=== PATIENT | male | born 1980 ===

== ENCOUNTER 2024-10-08 13:38 | Emergency (ER) | payer OTHER, BC, SELFPAY ==
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
[2024-10-08 13:44] VITALS: BP 133/70; PULSE 94; RESP 16; TEMP 36.4; O2SAT 100
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
--- OUTSIDE RECORDS SUMMARY | 2024-10-08 18:09 | XMS_ITS | Referral Summary ---
Author Organization [facility] Address [address] [place] [address] Care Team Providers Care Project Program Manager Name Role Phone Dinorah Cai GARRICK Primary Care Provider + Encounters Date Type Department Care Team Description 07/13/2024 Refill [facility] [address] [phone] Danuta Cruz MD Medication Refill from Last 3 Months Allergies No known active allergies Medications VITAMIN D PO Take by mouth. Active HYDROcodone-gaby taminophen (NORCO) 5-325 mg per tablet Take 1 tablet by mouth every 6 hours as needed for Pain. 10 tablet 07/14/2019 Active mesalamine (LIALDA) 1.2 g EC tablet Take 2 tablets by mouth Daily. 60 tablet 3 07/17/2024 Active Active Problems Problem Noted Date Diagnosed Date Non-recurrent bilateral ingu inal hernia without obstruction or gangrene 07/14/2019 Social History Tobacco Use Types Packs/Day Years Used Date Smoking Tobacco: Never Assessed Sex and Gender Information Value Date Recorded Sex Assigned at Not on file Legal Sex Male 12:22 AM PST Gender Identity Not on file Sexual Orientation Not on file Last Filed Vital Signs Vital Sign Reading Time Taken Comments Blood Pressure 120/76 07/14/2019 2:15 PM PST Pulse 72 07/14/2019 2:15 PM PST Temperature 36.8 C (98.2 F) 07/14/2019 2:15 PM PST Respiratory Rate 13 07/14/2019 2:15 PM PST Oxygen Saturation 96% 07/14/2019 2:15 PM PST Inhaled Oxygen Concentration - - Weight 87.1 kg (192 lb) 07/14/2019 11:06 AM PST Height 182.9 cm (6') 07/14/2019 11:06 AM PST Body Mass Index 26.04 07/14/2019 11:06 AM [facility] Plan of Treatment Not on file Medical Devices Implanted Type Area Superintendent Maintenance Airports Device Identifier Shelf Expiration Date Model / Serial / Lot Fhsc Mesh Lge/Lft 3d Max - [id number] Implanted:Qty: 1 on 07/14/2019 by CounterRashad MD at [facility] 08/25/2023 [id number] / / [id number] Fhsc Mesh, Lge/Right, 3d Max - [id number] Implanted:Qty: 1 on 07/14/2019 by CounterRashad MD at [facility] 07/25/2023 [id number] / / [id number] Procedures Procedure Name Priority Date/Time Associated Diagnosis Comments COMPREHENSIVE METABOLIC PANEL Routine 10/10/2023 8:47 AM PDT Ulcerative proctitis with rectal bleeding (HCC) from Last 3 Months or Most Recently Relevant to Health Maintenance Results * Comprehensive Metabolic Panel (10/10/2023 8:47 AM PDT) Na 141 135 - 145 mmol/L 10/10/2023 9:52 AM PDT [facility] K 4.3 3.5 - 5.3 mmol/L 10/10/2023 9:52 AM PDT [facility] Cl 105 99 - 109 mmol/L 10/10/2023 9:52 AM PDT [facility] CO2 30 20 - 36 mmol/L 10/10/2023 9:52 AM PDT [facility] Anion Gap 6 5 - 16 mmol/L 10/10/2023 9:52 AM PDT [facility] Glucose 87 65 - 99 mg/dL 10/10/2023 9:52 AM PDT [facility] BUN 16 8 - 25 mg/dL 10/10/2023 9:52 AM PDT [facility] Creatinine 1.06 0.70 - 1.30 mg/dL 10/10/2023 9:52 AM PDT [facility] Calcium 9.6 8.5 - 10.2 mg/dL 10/10/2023 9:52 AM PDT [facility] Albumin 4.3 3.5 - 5.0 g/dL 10/10/2023 9:52 AM PDT [facility] Bilirubin Total 0.6 0.0 - 1.5 mg/dL 10/10/2023 9:52 AM PDT [facility] Total Protein 6.4 6.2 - 8.2 g/dL 10/10/2023 9:52 AM PDT [facility] AST 19 10 - 45 U/L 10/10/2023 9:52 AM PDT [facility] ALT 25 10 - 65 U/L 10/10/2023 9:52 AM PDT [facility] Alkaline Phosphatase 64 35 - 115 U/L 10/10/2023 9:52 AM PDT [facility] Globulin 2.1 1.8 - 3.5 g/dL 10/10/2023 9:52 AM PDT [facility] Albumin/Globulin Ratio 2.0 1.2 - 2.8 10/10/2023 9:52 AM PDT [facility] BUN/Creatinine Ratio 15.1 12.0 - 20.0 10/10/2023 9:52 AM PDT [facility] eGFR >60 >=60 mL/min/1. 73m2 10/10/2023 9:52 AM PDT [facility] Comment: GFR value was calculated using a new GFR equation effective since 08/15/21. This is a recommendation of the [place] Society of Nephrology and National Kidney Foundation. Clinical practice guidelines suggest the use of serum cystatin C as a confirmatory test for eGFR 45-59 ml/min/1.73m2 in adults who do not have markers of kidney disease; eGFR may be less accurate in this range. Blood Venipuncture / Unknown 10/10/2023 8:47 AM PDT 10/10/2023 8:46 AM PDT Danuta Cruz MD LAB BLOOD ORDERABLES Final Res ult [facility] [address] [phone] from Last 3 Months or Most Recently Relevant to Health Maintenance Insurance [employer]MERA PREFERRED PREMERA PREFERRED Member Subscriber Plan / Payer (Ef fective 2018-Present) Name:Carlos Garcia Relation to Subscriber:Self Name:Carlos Garcia Payer ID:[id number] (NAIC) Type:PPO Address: [place] [id number] [employer]MERA PREFERRED Advance Directives * Full Code (Latest Code Status on File) Date Activated Date Inactivated Comments 07/14/2019 12:42 PM 07/15/2019 2:34 AM Care Teams Project Program Manager Relationship Specialty [place] [address] [place] [address] PCP - General 01/05/19
--- OUTSIDE RECORDS SUMMARY | 2024-10-08 18:09 | XMS_ITS | Clinical Summary ---
Author Organization [facility] Address [address] [place] [address] Phone Care Team Providers Care Grab Hooker Name Role Phone Dinorah Cai Primary Care Provider [phone] Allergies No known active allergies Medications cephALEXin 500 MG capsuleIndicati ons:Toe infection,Paron ychia, toe, left Take 2 capsules by mouth 2 times daily. Take until gone 28 Cap 9 Active Additional Information Patient not taking.Reason: Therapy Complete, Reported on 06/24/2019 VITAMIN D PO Take by mouth. Ac tive Active Problems No known active problems Immunizations Immunization Administration Dates Next Due COVID-19 Pfizer 30 mcg/0.3 m L Primary series: MONOVALENT VACCINE (Cook capped vial with cook-bordered label) 12+yrs 10/29/2020,10/10/2020 Social History Tobacco Use Types Packs/Day Years Used Date Smoking Tobacco: Never Smokeless Tobacco: Never Alcohol Use Standard Drinks/Week Comments Yes 0 (1 standard drink = 0.6 oz pur e alcohol) AUDIT-C Answer Date Recorded Q1: How often do you have a drink containing alc ohol? 2-4 times a month 09/18/2019 Average Number of Drinks Not on file 020 Frequency of Binge Drinking Not on file 08/30 Sex and Gender Information Value Date Recorded Sex Assigned at Not on file Legal Sex Male 10:13 AM PDT Gender Identity Not on file Sexual Orientation Not on file Last Filed Vital Signs Vital Sign Reading Time Taken Comments Blood Pressure 120/70 09/18/2019 2:56 PM PST Pulse 90 09/18/2019 2:42 PM PST Temperature 36.8 C (98.3 F) 09/18/2019 2:42 PM PST Respiratory Rate 18 09/18/2019 2:42 PM PST Oxygen Saturation 95% 02/04/2019 10:59 AM PDT Inhaled Oxygen Concentration - - Weight 92.3 kg (203 lb 8 oz) 09/18/2019 2:42 PM PST Height 182.9 cm (6') 09/18/2019 2:42 PM PST Body Mass Index 27.6 09/18/2019 2:42 PM PST Plan of Treatment Health Maintenance Due Date Last Done Comments Depression Screening 1994 HIV Screening 2000 Hepatitis C Screening 2000 DTaP/Td/Tdap Vaccines (1 - Tdap) 2001 Hepatitis B Vaccines (1 of 3 - 19+ 3-dose series) 2001 COVID-19 Vaccine ( season) 2024 08/08/2023, 07/11/2021, 10/29/2020, Additional history exists Influenza Vaccine (#1) 2024 4, 06/11/2022, 04/15/2021 Lipid Panel 09/30/2024 10/01/2019 HPV Vaccines Aged Out No longer eligi ble based on patient's age to complete this topic Pneumococcal Vaccine Aged Out No long er eligible based on patient's age to complete this topic Procedures Procedure Name Priority Date/Time Associated Diagnosis Comments [facility] LIPID PANEL Routine 10/01/2019 8:03 AM PST from Last 3 Months or Most Recently Relevant to Health Maintenance Results * LIPID PANEL (10/01/2019 8:03 AM PST) Triglycerides 66 30 - 200 mg/dL [facility] Comment: Adult: < 150 Desirable 150-199 Borderline High 200-499 High >= 500 Very High Pediatric 2-17 years < 90 Desirable 90-129 Borderline High >= 130 High Cholesterol 186 150 - 240 mg/dL [facility] Comment: < 200 Desirable 200-239 Borderline High >= 240 High Risk HDL Cholesterol 56 mg/dL [facility] Comment: Male: >=60 Less than Average Risk of Coronary Disease 40-59 Average Risk of Coronary Disease <40 Increased Risk of Coronary Disease Female: >=60 Less than Average Risk of Coronary Disease 50-59 Average Risk of Coronary Disease <50 Increased Risk of Coronary Disease LDL Cholesterol 117 3 - 130 mg/dL [facility] Comment: < 100 Optimal 100-129 Near Optimal, Above Optimal 130-159 Borderline High 160-189 High >= 190 Very High Chol/HDL 3.3 0.0 - 5.0 [facility] LDL/HDL 2.1 0.0 - 3.0 [facility] 10/01/2019 8:03 AM PST 10/01/2019 2:32 PM PST Narrative [facility] - 10/01/2019 3:30 PM PST Fasting Dinorah Cai CHEMISTRY ORDERABLES Final Resul t [facility] [address] [place] [address] from Last 3 Months or Most Recently Relevant to Health Maintenance Insurance [employer] Care Teams Grab Hooker Relationship Specialty Start Date End Date Dinorah Cai [address] [facility] [address] [place] [address] PCP - General MACHINE MAINTENANCE MECHANIC 03/23/24
--- OUTSIDE RECORDS SUMMARY | 2024-10-08 18:10 | XMS_ITS | Clinical Summary ---
Author Organization [facility] Address [address] [place] [address] Care Team Providers Care Prop Attendant Name Role Phone Ayala Dinorah Tameka GARRICK Primary Care Provider + Allergies No known active allergies Medications VITAMIN [...] inal hernia without obstruction or gangrene 07/14/2019 Encounters Date Type Department Care Team Description 07/13/2024 Refill [facility] [address] [phone] Danuta Cruz MD Medication Refill from Last 3 Months Social History Tobacco Use Types Packs/Day Years [...] Body Mass Index 26.04 07/14/2019 11:06 AM PST Plan of Treatment Health Maintenance Due Date Last Done Comments Hepatitis C Screening 1982 Human Immunodeficiency Virus (HIV) Screening 1997 Vaccine: Dtap/Tdap/Td (1 - Tdap) 2001 COVID-19 Vaccine (2023-2 5 season) 2024 08/08/2023, 07/11/2021, 10/29/2020, Additional history exists Vaccine: Influenza (#1) 2024 08/08/19 24, 06/11/2022, 04/15/2021 Med Mgmt: Cr 10/09/2024 10/10/2023 Medication Management 10/09/2024 10/10/2023 Vaccine: HPV Aged Out No longer eligi ble based on patient's age to complete this topic Vaccine: Hib Aged Out No longer eligi ble based on patient's age to complete this topic Medical Devices Implanted Type Area Life Science Taxonomist Device Identifier Shelf Expiration Date Model / Serial / Lot Fhsc Mesh Lge/Lft 3d Max - [id number] Implanted:Qty: 1 on 07/14/2019 by Rashad Myrick MD at [facility] 08/25/2023 [id number] / / [id number] Fhsc Mesh, Lge/Right, 3d Max - [id number] Implanted:Qty: 1 on 07/14/2019 by Rashad Myrick MD at [facility] 07/25/2023 [id number] / / [id number] Procedures Procedure Name Priority Date/Time Associated Diagnosis Comments COMPREHENSIVE METABOLIC PANEL Routine 10/10/2023 8:47 AM PDT Ulcerative proctitis with rectal bleeding (HCC) from Last 3 Months or Most Recently Relevant to Health Maintenance Results * Comprehensive Metabolic Panel (10/10/2023 8:47 AM PDT) Na 141 135 - 145 mmol/L 10/10/2023 9:52 AM PDT [facility] K 4.3 3.5 - 5.3 mmol/L 10/10/2023 9:52 AM PDT [facility] Cl 105 99 - 109 mmol/L 10/10/2023 9:52 AM PDT [facility] CO2 30 20 - 36 mmol/L 10/10/2023 9:52 AM PDT [facility] Anion Gap 6 5 - 16 mmol/L 10/10/2023 9:52 AM PDT [facility] Glucose 87 65 - 99 mg/dL 10/10/2023 9:52 AM PDT [facility] BUN 16 8 - 25 mg/dL 10/10/2023 9:52 AM PDT [facility] Creatinine 1.06 0.70 - 1.30 mg/dL 10/10/2023 9:52 AM PDT [facility] Calcium 9.6 8.5 - 10.2 mg/dL 10/10/2023 9:52 AM PDT [facility] Albumin 4.3 3.5 - 5.0 g/dL 10/10/2023 9:52 AM PDT [facility] Bilirubin Total 0.6 0.0 - 1.5 mg/dL 10/10/2023 9:52 AM PDT [facility] Total Protein 6.4 6.2 - 8.2 g/dL 10/10/2023 9:52 AM PDT [facility] AST 19 10 - 45 U/L 10/10/2023 9:52 AM PDT [facility] ALT 25 10 - 65 U/L 10/10/2023 9:52 AM PDT [facility] Alkaline Phosphatase 64 35 - 115 U/L 10/10/2023 9:52 AM PDT [facility] Globulin 2.1 1.8 - 3.5 g/dL 10/10/2023 9:52 AM PDT [facility] Albumin/Globulin Ratio 2.0 1.2 - 2.8 10/10/2023 9:52 AM PDT [facility] BUN/Creatinine Ratio 15.1 12.0 - 20.0 10/10/2023 9:52 AM PDT [facility] eGFR >60 >=60 mL/min/1. 73m2 10/10/2023 9:52 AM PDT [facility] Comment: GFR value was calculated using a new GFR equation effective since 08/15/21. This is a recommendation of the [place] [employer] of Nephrology and National Kidney Foundation. Clinical practice guidelines suggest the use of serum cystatin C as a confirmatory test for eGFR 45-59 ml/min/1.73m2 in adults who do not have markers of kidney disease; eGFR may be less accurate in this range. Blood Venipuncture / Unknown 10/10/2023 8:47 AM PDT 10/10/2023 8:46 AM PDT us Danuta Cruz MD LAB BLOOD ORDERABLES Final Res ult [facility] [address] [place] [address] [phone] from Last 3 Months or Most Recently Relevant to Health Maintenance Insurance [employer]A PREFERRED PREMERA PREFERRED [employer] PREFERRED Advance Directives * Full Code (Latest Code Status on File) Date Activated Date Inactivated Comments 07/14/2019 12:42 PM 07/15/2019 2:34 AM Care Teams Prop Attendant Relationship Specialty [place] [address] [place], [place] [id number] PCP - General 01/05/19
--- OUTSIDE RECORDS SUMMARY | 2024-10-08 18:10 | XMS_ITS ---
Author Organization [facility] Address [address] [place] [address] Care Team Providers Care Hr Associate Name Role Phone Dinorah Cai ND Primary Care Provider Manju King MD, [place] Unavailable [phone] REASON FOR VISIT Re:RE:New Refill Request Encounters Encounter Location Date Provider Diagnosis [place] [address] [place] [address] 05/02/2023 Avni King Plan Of Treatment No Information Progress Notes * Carlos PATEL WDOB:1980 (42 yo M)Acc No.[id number]:05/02/2023 Patient: Carlos Perry :1980 A ge:42 Y S ex:Male Address:[address] [place] [address] * true * Date: Generated for Xenai ng/Faconnerg/eTransmitting on: 0 10/08/2024 07:09 PM EDT
--- OUTSIDE RECORDS SUMMARY | 2024-10-08 18:10 | XMS_ITS | Patient Health Record ---
Author Organization [facility] Address [address] [address] Care Team Providers Care Public Health Aides Teacher Name Role Phone Dinorah Cai ND Primary Care Provider Manju King MD, [facility] Unavailable [phone] Allergies No Known Allergies Reason For Referral No Information Medications Medication SIG (Take, Route, Fr equency, Duration) Notes Start Date End Date Status Mesalamine 1000 MG 1 suppository at bed time Rectal Once a day for 30 days 04/13/2021 Active Social History Tobacco Use: Social History Observation Description Date Details (start date - stop date) Never Smoker NA - NA Tobacco Use/Smoking (Archived) Question Answer Notes Are you a? nonsmoker Alcohol Screen (Audit-C) Question Answer Notes Did you have a drink contain ing alcohol in the past year? Yes How many drinks did you have on a typical day when you were drinking in the past year? 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) Ulcerative proctitis without complication (K51.20) Active confirmed Plan Of Treatment Future Test Test Name Order Date Colonoscopy 04/10/2021 Insurance Providers Payer Name Payer Address Payer Phone Subscriber Number Group Number Insured Name Patient Relationship to Insured Coverage Start Date Coverage End Date [employer] [address] [address] [place] [address] [id number] Carlos Garcia Self - patient is the insured Medical (General) History Medical History History ICD Code Bilateral inguinal hernia Family history of colon cancer (maternal grandfather) Family history of colon polyps (mother) undergoing surveillance Family history of diverticul itis (paternal grandmother complicated requiring surgery) Family history of PUD (mother) Ulcerative proctitis Surgical History Surgery Date(Month/Year) Bilateral inguinal herniorrhaphy
--- OUTSIDE RECORDS SUMMARY | 2024-10-08 18:10 | XMS_ITS | Referral Summary ---
Author Organization [facility] Address [address] [place] [address] Phone Care Team Providers Care Health Commissioner Name Role Phone Dinorah Cai Primary Care Provider [phone] Allergies No known active allergies Medications cephALEXin [...] 09/18/2019 2:42 PM PST Plan of Treatment Not on file Procedures Procedure Name Priority Date/Time Associated Diagnosis Comments G LIPID PANEL Routine 10/01/2019 8:03 AM PST from Last 3 Months or Most Recently Relevant to Health Maintenance Results * LIPID PANEL (10/01/2019 8:03 AM PST) Triglycerides 66 30 - 200 mg/dL [facility] Comment: Adult: < 150 Desirable 150-199 Borderline High 200-499 High >= 500 Very High Pediatric 2-17 years < 90 Desirable 90-129 Borderline High >= 130 High Cholesterol 186 150 - 240 mg/dL [facility] Comment: < 200 Desirable 200-239 Borderline High >= 240 High Risk HDL Cholesterol 56 mg/dL [facility] Comment: Male: >=60 Less than Average Risk of Coronary Disease 40-59 Average Risk of Coronary Disease <40 Increased Risk of Coronary Disease Female: >=60 Less than Average Risk of Coronary Disease 50-59 Average Risk of Coronary Disease <50 Increased Risk of Coronary Disease LDL Cholesterol 117 3 - 130 mg/dL [facility] Comment: < 100 Optimal 100-129 Near Optimal, Above Optimal 130-159 Borderline High 160-189 High >= 190 Very High Chol/HDL 3.3 0.0 - 5.0 [facility] LDL/HDL 2.1 0.0 - 3.0 [facility] 10/01/2019 8:03 AM PST 10/01/2019 2:32 PM PST Narrative [facility] - 10/01/2019 3:30 PM PST Fasting us Dinorah Cai CHEMISTRY ORDERABLES Final Resul t [facility] [address] [place] [address] from Last 3 Months or Most Recently Relevant to Health Maintenance Insurance [employer] Care Teams Health Commissioner Relationship Specialty Start Date End Date Dinorah Cai [address] [facility] [address] [place] [address] PCP - General AGRIBUSINESS PROFESSOR 03/23/24
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
[2024-10-08] MEDS: HYDROcodone/acetaminophen (*CRX) 5-325 MG TABLET 1 TAB PO (19:30)
[2024-10-08] MEDS: OFLOXACIN 0.3% OPHTH SOLN 5 ML BTL 1 DROP RIGHT EYE (19:30)
[2024-10-08] MEDS: methocarbamoL 750 MG TABLET PO (19:30)
== END 2024-10-08 19:30 | disposition home or self-care (01) ==
PROVIDERS: Emergency Provider Student in an Organized Health Care Education/Training Program
DX: S05.01XA Injury of conjunctiva and corneal abrasion without foreign body, right eye, initial encounter (principal); S00.33XA Contusion of nose, initial encounter; S49.92XA Unspecified injury of left shoulder and upper arm, initial encounter; V43.62XA Car passenger injured in collision with other type car in traffic accident, initial encounter; M19.012 Primary osteoarthritis, left shoulder
CPT/HCPCS: 70486; 71046; 71100; 73030; 73564; 99284; A9270